=== PATIENT | female | born 1975 | race Caucasian/White ===

== ENCOUNTER → 2020-05-12 | Outpatient (CLI) | payer MEDICARE, OTHER ==
[~2020-05-12] MED LIST: CELEXA40 MG PO; CLEOCIN HCL300 MG PO; LIORESAL TAB 1010 MG PO; MAXALT MLT10 MG PO; MYCOSTATIN CREA15 GM TOP; NEURONTIN400 MG PO; NORCO 7.5-3251 EACH PO; NOVOLOG MI100 UNIT/1 SC; PROTONIX40 MG PO; REMICADE PO; TOUJEO MAX300 UNIT/1 SQ; TRULICITY0.75 MG/0. SQ; VAGIFEM10 MCG PO; VITAMIN D250000 UNIT PO
== END ==
LOC: MAMO 08:43
DX: Z12.31 Encounter for screening mammogram for malignant neoplasm of breast (principal)
CPT/HCPCS: 77063; 77067

== ENCOUNTER 2020-10-25 15:41 | Emergency (ER) | payer MEDICARE, OTHER ==
[~2020-10-25 15:41] MED LIST changes: -MYCOSTATIN CREA15 GM TOP
[2020-10-25 16:42] LABS: HEMOGLOBIN 15.4 gm/dl (12.3-15.3); RED BLOOD COUNT 5.01 M/UL (4.00-5.10); WHITE BLOOD COUNT 5.9 K/UL (4.5-11.0)
[2020-10-25 16:55] LABS: BUN/CREATININE RATIO 12 (0-10)
[2020-10-25] MEDS ORDERED: MYCOSTATIN CREA15 GM TOP (18:56)
== END 2020-10-25 19:05 | disposition home or self-care (01) ==
LOC: ER1 15:41
DX: K74.60 Unspecified cirrhosis of liver (principal); I10 Essential (primary) hypertension; K92.89 Other specified diseases of the digestive system; E11.9 Type 2 diabetes mellitus without complications; F17.200 Nicotine dependence, unspecified, uncomplicated; Z88.0 Allergy status to penicillin; Z88.7 Allergy status to serum and vaccine; Z88.5 Allergy status to narcotic agent; Z79.4 Long term (current) use of insulin
CPT/HCPCS: 80053; 81001; 83690; 85025; 87077; 87086; 87186; 99284; Q9967

== ENCOUNTER 2021-04-21 09:18 | Emergency (ER) | payer OTHER ==
[~2021-04-21 09:18] MED LIST changes: +MYCOSTATIN CREA15 GM TOP
[2021-04-21 10:11] LABS: HEMOGLOBIN 14.8 gm/dl (12.3-15.3); RED BLOOD COUNT 4.77 M/UL (4.00-5.10); WHITE BLOOD COUNT 7.9 K/UL (4.5-11.0)
[2021-04-21 10:27] LABS: BUN/CREATININE RATIO 8 (0-10)
== END 2021-04-21 13:40 | disposition home or self-care (01) ==
LOC: ER1 09:18
PROVIDERS: Physician Assistant
DX: K74.60 Unspecified cirrhosis of liver (principal); F17.210 Nicotine dependence, cigarettes, uncomplicated; Z88.0 Allergy status to penicillin; Z88.5 Allergy status to narcotic agent
CPT/HCPCS: 71045; 80048; 80076; 81001; 83690; 84703; 85025; 85610; 87086; 96374; 96375; 99284; J1170; J1940; J7030; Q9967

== ENCOUNTER → 2021-05-31 | Outpatient (CLI) | payer MEDICARE, OTHER | LOC: NM 09:00 | PROVIDERS: Internal Medicine Gastroenterology | DX: K74.60 Unspecified cirrhosis of liver (principal); K31.84 Gastroparesis | CPT/HCPCS: 36415; 78264; 80048; A9541 ==

== ENCOUNTER → 2021-06-26 | Day surgery (SDC) | payer MEDICARE, OTHER ==
[~2021-06-26] MED LIST changes: +LASIX40 MG PO; +LINZESS290 MCG PO; +PREGABALIN100 MG PO; +SPIRONOLACTONE50 MG PO; +ZOFRAN 4 MG TAB4 MG PO
== END | disposition home or self-care (01) ==
LOC: OR 07:51
DX: K74.60 Unspecified cirrhosis of liver (principal); I85.10 Secondary esophageal varices without bleeding; K76.6 Portal hypertension; K31.89 Other diseases of stomach and duodenum; K29.70 Gastritis, unspecified, without bleeding; R18.8 Other ascites; K59.09 Other constipation; I10 Essential (primary) hypertension; E11.9 Type 2 diabetes mellitus without complications; E78.00 Pure hypercholesterolemia, unspecified; M19.90 Unspecified osteoarthritis, unspecified site; E66.01 Morbid (severe) obesity due to excess calories; F17.210 Nicotine dependence, cigarettes, uncomplicated; Z68.41 Body mass index [BMI] 40.0-44.9, adult; Z88.5 Allergy status to narcotic agent; Z88.0 Allergy status to penicillin; Z79.4 Long term (current) use of insulin; Z79.899 Other long term (current) drug therapy; Z20.822 Contact with and (suspected) exposure to COVID-19
CPT/HCPCS: 82962; J2001; J2704; J7040

== ENCOUNTER 2021-09-28 08:48 | Emergency (ER) | payer MEDICARE, OTHER, MEDICAID ==
[2021-09-28 09:54] LABS: RED BLOOD COUNT 4.59 M/UL (4.00-5.10); WHITE BLOOD COUNT 10.5 K/UL (4.5-11.0)
[2021-09-28 10:32] LABS: BUN/CREATININE RATIO 13 (0-10)
== END 2021-09-28 13:30 | disposition home or self-care (01) ==
LOC: ER1 08:48
PROVIDERS: Nurse Practitioner
DX: E11.9 Type 2 diabetes mellitus without complications (principal); R51.9 Headache, unspecified; F17.210 Nicotine dependence, cigarettes, uncomplicated; Z88.0 Allergy status to penicillin; Z88.5 Allergy status to narcotic agent; Z20.822 Contact with and (suspected) exposure to COVID-19; Z88.7 Allergy status to serum and vaccine; Z86.59 Personal history of other mental and behavioral disorders
CPT/HCPCS: 0240U; 70450; 70496; 70498; 71045; 80053; 81001; 82550; 82553; 84439; 84443; 84484; 85025; 93005; 96374; 99284; J2405; J7030; Q9967

== ENCOUNTER → 2021-09-28 | Outpatient (CLI) | payer MEDICARE, OTHER, MEDICAID ==
[2021-09-28 09:05] LABS: BUN/CREATININE RATIO 12 (0-10)
== END ==
LOC: US 08:00
PROVIDERS: Internal Medicine Gastroenterology
DX: K74.60 Unspecified cirrhosis of liver (principal)
CPT/HCPCS: 36415; 76705; 80048